=== PATIENT | male | born 1990 | race American Indian/Alaskan Native ===

== ENCOUNTER 2019-02-17 19:57 | Emergency (ER) | payer OTHER ==
[2019-02-17 20:10] VITALS: BP 117/85
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
[2019-02-17] MEDS ORDERED: PERCOCET 5/325 PO STA (20:42)
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
== END 2019-02-17 22:17 | disposition home or self-care (01) ==
LOC: ED 19:57
DX: M25.512 Pain in left shoulder (principal); M79.10 Myalgia, unspecified site; M54.5 Low back pain; J45.909 Unspecified asthma, uncomplicated; F12.10 Cannabis abuse, uncomplicated; Z88.8 Allergy status to other drugs, medicaments and biological substances; V89.2XXA Person injured in unspecified motor-vehicle accident, traffic, initial encounter; Y93.89 Activity, other specified; Y92.488 Other paved roadways as the place of occurrence of the external cause; Y99.8 Other external cause status
CPT/HCPCS: 72100; 99284